=== PATIENT | female | born 1945 | race Caucasian/White ===

== ENCOUNTER 2021-03-20 10:36 | Outpatient (CLI) | payer MEDICARE ==
[2021-03-20 12:09] LABS: Hemoglobin 15.2 g/dL (12.0-15.5); Mean Corpuscular HGB CONC 31.7 g/dL (32.0-36.0); Mean Corpuscular Hemoglobin 29.6 pg (27.0-33.0); Mean Corpuscular Volume 93.2 fl (81.6-98.3); Mean Platelet Volume 9.6 fl (7.4-10.4); Platelet Count 301 10x3/uL (150-450); RBC Distribution Width 13.8 % (11.5-14.5); Red Blood Cell (RBC) Count 5.14 10x6/uL (3.90-5.03); White Blood Cell (WBC) Count 10.9 10x3/uL (3.5-10.5)
[2021-03-20 12:22] LABS: Anion Gap 16 mmol/L (10-20); BUN (Urea Nitrogen) 12 mg/dL (9.8-20.1); Calc. Creatinine Clearance 0 mL/min (70-130); Calcium 9.6 mg/dL (7.8-10.44); Carbon Dioxide 25 mmol/L (23-31); Chloride 105 mmol/L (98-107); Glucose 97 mg/dL (83-110); Sodium 141 mmol/L (136-145)
[2021-03-20 12:29] LABS: INR-International Normal Ratio 0.9; Prothrombin Time 10.3 sec (9.5-12.1)
[2021-03-21 02:13] LABS: SARS-CoV-2 PCR by NAA Not Detected (NotDetected)
== END 2021-03-20 10:37 | disposition home or self-care (01) ==
LOC: CSHLAB 10:36
PROVIDERS: ATTEND Neurological Surgery
DX: Z01.812 Encounter for preprocedural laboratory examination (principal); Z20.822 Contact with and (suspected) exposure to COVID-19
CPT/HCPCS: 80048; 85027; 85610; 85730; 87635; U0003; U0005

== ENCOUNTER 2021-03-23 05:36 | Day surgery (SDC) | payer MEDICARE ==
[2021-03-22 13:34] VITALS: BMI 27.9
[2021-03-23] MEDS ORDERED: EPINEPHrine 1 MG/ML AMP ONE (06:31)
[2021-03-23] MEDS ORDERED: Bupivacaine 0.25% HCL 30 ML VIAL ONE (06:31)
[2021-03-23] MEDS ORDERED: Thrombin 5000 UNITS/5 ML VIAL ONE (06:32)
[2021-03-23] MEDS ORDERED: Glycopyrrolate 0.2 MG/ML 5 ML SYRINGE ONE (06:36)
[2021-03-23] MEDS ORDERED: Rocuronium Bromide 10 MG/ML (10ML VIAL) ONE (06:36)
[2021-03-23] MEDS ORDERED: Dexamethasone 20 MG/5 ML VIAL ONE (06:36)
[2021-03-23] MEDS ORDERED: PROPOFOL 20 ML ONE (06:36)
[2021-03-23] MEDS ORDERED: Fentanyl 100 MCG/2 ML VIAL ONE ×2 (06:36→10:11)
[2021-03-23] MEDS ORDERED: Lidocaine 4% PF 5 ML AMP ONE (06:36)
[2021-03-23] MEDS ORDERED: Ondansetron PF 4 MG/2 ML Vial ONE (06:36)
[2021-03-23] MEDS ORDERED: Lidocaine 1% MPF 2 ML VIAL ONE (06:39)
[2021-03-23] MEDS ORDERED: Lidocaine 1% w/Epinephrine 1:100K 20 ML VIAL ONE (07:16)
[2021-03-23] MEDS ORDERED: SUGAMMADEX SODIUM 500 MG/5 ML VIAL ONE (07:20)
[2021-03-23] MEDS ORDERED: ePHEDrine 50 MG/ML VIAL ONE (07:27)
[2021-03-23] MEDS ORDERED: Vecuronium 10 MG VIAL ONE (08:20)
[2021-03-23] MEDS ORDERED: Ketorolac Tromethamine 15 MG/ML VIAL ONE (10:11)
[2021-03-23] MEDS ORDERED: Scopolamine 1.5 mg/72 hour Patch ONE (11:22)
[2021-03-23] MEDS ORDERED: Cephalexin 500 MG CAP PO SCH (13:00)
== END 2021-03-23 13:25 | disposition home or self-care (01) ==
LOC: CSHSDC 05:36
PROVIDERS: ATTEND Neurological Surgery
DX: M50.121 Cervical disc disorder at C4-C5 level with radiculopathy (principal); E78.00 Pure hypercholesterolemia, unspecified; M06.9 Rheumatoid arthritis, unspecified; F32.9 Major depressive disorder, single episode, unspecified; K21.9 Gastro-esophageal reflux disease without esophagitis; Z90.710 Acquired absence of both cervix and uterus; Z90.49 Acquired absence of other specified parts of digestive tract; Z79.899 Other long term (current) drug therapy; Z88.2 Allergy status to sulfonamides; Z91.041 Radiographic dye allergy status
CPT/HCPCS: 20930; 20936; 22554; 22585; 22853 ×2; 76000; C1713 ×3; C1776; J0171; J0690; J1100; J1885; J2405; J2704; J3010; J3490; S0020